=== PATIENT | male | born 1980 | race Caucasian/White ===

== ENCOUNTER 2018-06-23 17:01 | Emergency (ER) | payer MEDICAID ==
[~2018-06-23] VITALS: Ht 180.3 cm; Wt 107.9 kg
[~2018-06-23 17:01] MED LIST: CYCL-120 PO; IBUP-1051 PO; NO HOME MEDS
[2018-06-23 17:08] VITALS: BP 140/80
[2018-06-23] MEDS ORDERED: FLUT16SP2 BOTHNARES (17:21)
[2018-06-23] MEDS ORDERED: METH4TAB3 PO (17:21)
== END 2018-06-23 17:32 | disposition home or self-care (01) ==
LOC: ER 17:02
DX: J32.9 Chronic sinusitis, unspecified (principal); F17.200 Nicotine dependence, unspecified, uncomplicated; Z79.899 Other long term (current) drug therapy; Z56.0 Unemployment, unspecified
CPT/HCPCS: 99283

== ENCOUNTER 2019-02-23 06:24 | Emergency (ER) | payer MEDICAID ==
[~2019-02-23] VITALS: Ht 177.8 cm; Wt 114.0 kg
[~2019-02-23 06:24] MED LIST changes: +DIAZ5TAB PO; +FLUT16SP2 BOTHNARES; +METH4TAB3 PO
[2019-02-23] MEDS ORDERED: ERYT1OIN6 LEFTEYE (07:11)
[2019-02-23 07:29] VITALS: BP 113/68
== END 2019-02-23 07:30 | disposition home or self-care (01) ==
LOC: ER 06:24
DX: H10.9 Unspecified conjunctivitis (principal); Z56.0 Unemployment, unspecified; Z79.899 Other long term (current) drug therapy
CPT/HCPCS: 99283

== ENCOUNTER 2019-10-23 16:03 | Emergency (ER) | payer MEDICAID ==
[~2019-10-23] VITALS: Ht 180.3 cm; Wt 110.0 kg
[2019-10-23 16:23] VITALS: BP 117/74
[2019-10-23] MEDS ORDERED: AMOX500C2 PO (16:56)
== END 2019-10-23 17:30 | disposition home or self-care (01) ==
LOC: ER 16:04
DX: H66.91 Otitis media, unspecified, right ear (principal); Z56.0 Unemployment, unspecified; Z79.899 Other long term (current) drug therapy
CPT/HCPCS: 99283

== ENCOUNTER 2021-02-21 19:04 | Emergency (ER) | payer MEDICAID ==
[~2021-02-21] VITALS: Ht 180.3 cm; Wt 88.2 kg
[2021-02-21 19:09] VITALS: BP 140/78
[2021-02-21] MEDS ORDERED: LIDOcaine 1% W/epiNEPHrine 1:200,000 10ml vial IJ ONE (19:50)
[2021-02-21] MEDS ORDERED: TETanus/Pertussis (Acell)/Diphther VAC/PF (Tdap-Adult) 0.5ml syringe IMVAC ONE (19:50)
== END 2021-02-21 21:18 | disposition home or self-care (01) ==
LOC: ER 19:05
DX: S61.412A Laceration without foreign body of left hand, initial encounter (principal); Z72.89 Other problems related to lifestyle; Z56.0 Unemployment, unspecified; Z79.899 Other long term (current) drug therapy; W26.0XXA Contact with knife, initial encounter; Y93.89 Activity, other specified; Y92.89 Other specified places as the place of occurrence of the external cause; Y99.8 Other external cause status
CPT/HCPCS: 12002; 90471; 90715; 99283

== ENCOUNTER 2021-02-22 13:36 | Emergency (ER) | payer MEDICAID ==
[~2021-02-22] VITALS: Ht 180.3 cm; Wt 100.0 kg
[2021-02-22 13:52] VITALS: BP 136/86
== END 2021-02-22 16:36 | disposition left against medical advice (07) ==
LOC: ER 13:36
DX: M79.642 Pain in left hand (principal); Z53.21 Procedure and treatment not carried out due to patient leaving prior to being seen by health care provider

== ENCOUNTER 2021-06-26 09:08 | Emergency (ER) | payer MEDICAID ==
[~2021-06-26] VITALS: Ht 180.3 cm; Wt 104.5 kg
[2021-06-26 09:33] VITALS: BP 134/92
[2021-06-26 11:32] LABS: D-DIMER 0.46 MG/L FEU (0-0.50)
== END 2021-06-26 14:35 | disposition home or self-care (01) ==
LOC: ER 09:09
DX: U07.1 COVID-19 (principal); R43.8 Other disturbances of smell and taste; J02.9 Acute pharyngitis, unspecified; R06.02 Shortness of breath; R09.81 Nasal congestion; R05.9 Cough, unspecified; R07.89 Other chest pain; Z72.89 Other problems related to lifestyle; Z56.0 Unemployment, unspecified; Z79.899 Other long term (current) drug therapy
CPT/HCPCS: 36415; 85379; 87635; 99283; C9803

== ENCOUNTER 2022-08-28 10:36 | Emergency (ER) | payer MEDICAID ==
[~2022-08-28] VITALS: Ht 180.3 cm; Wt 100.0 kg
[2022-08-28 10:39] VITALS: BP 129/93
[2022-08-28] MEDS ORDERED: AMOX-580 PO (11:13)
== END 2022-08-28 11:28 | disposition home or self-care (01) ==
LOC: ER 10:37
DX: H00.034 Abscess of left upper eyelid (principal)
CPT/HCPCS: 99283

== ENCOUNTER 2022-08-28 16:59 | Emergency (ER) | payer MEDICAID ==
[~2022-08-28] VITALS: Ht 180.3 cm; Wt 100.0 kg
[~2022-08-28 16:59] MED LIST changes: +AMOX-580 PO
[2022-08-28 17:06] VITALS: BP 132/74
== END 2022-08-28 21:03 | disposition left against medical advice (07) ==
LOC: ER 17:00
DX: S61.215A Laceration without foreign body of left ring finger without damage to nail, initial encounter (principal); Z53.21 Procedure and treatment not carried out due to patient leaving prior to being seen by health care provider; X58.XXXA Exposure to other specified factors, initial encounter; Y93.9 Activity, unspecified; Y92.9 Unspecified place or not applicable; Y99.9 Unspecified external cause status

== ENCOUNTER 2022-11-19 10:59 | Emergency (ER) | payer MEDICAID ==
[~2022-11-19] VITALS: Ht 180.3 cm; Wt 100.0 kg
[~2022-11-19 10:59] MED LIST changes: -AMOX-580 PO
--- NOTE | 2022-11-19 11:23 | NUR ---
INFORMED DR. BRAND OF PT, SAW PT FROM DOORWAY WHILE PT GETTING EKG IN ROOM 19. GIVEN LAB ORDERS, NO IMAGING AT THIS TIME.
[2022-11-19 11:39] LABS: BASOPHILS # (AUTO) 0.1 X10'3 (0-0.2); BASOPHILS % (AUTO) 0.6 % (0-1); EOSINOPHILS # (AUTO) 0.1 X10'3 (0-0.9); EOSINOPHILS % (AUTO) 0.7 % (0-6); HEMATOCRIT 48.9 % (42.0-52.0); HEMOGLOBIN 16.7 g/dl (14.0-17.9); LYMPHOCYTES # (AUTO) 2.3 X10'3 (1.1-4.8); LYMPHOCYTES % (AUTO) 10.4 % (21-51); MEAN CORPUSCULAR HEMOGLOBIN 30.9 PG (27.0-31.0); MEAN CORPUSCULAR HGB CONC 34.1 g/dL (33.0-36.5); MEAN CORPUSCULAR VOLUME 90.7 FL (78-98); MEAN PLATELET VOLUME 8.9 FL (7.4-10.4); MONOCYTES # (AUTO) 0.4 X10'3 (0-0.9); MONOCYTES % (AUTO) 2.1 % (2-12); NEUTROPHILS # (AUTO) 18.9 X10'3 (1.8-7.7); NEUTROPHILS % (AUTO) 86.2 % (42-75); PLATELET COUNT 232 X10'3 (140-440); RED BLOOD COUNT 5.39 X10'6 (4.70-6.10); RED CELL DISTRIBUTION WIDTH 13.2 % (11.5-14.5); WHITE BLOOD COUNT 21.9 X10'3 (4.5-11.0)
[2022-11-19 11:39] LABS: CLARITY,URINE CLEAR (Clear); COLOR,URINE YELLOW (Yellow); GLUCOSE, URINE >=1000 mg/dl (Neg); KETONES,URINE NEGATIVE (Neg); LEUKOCYTE ESTERASE ,URINE NEGATIVE (Neg); NITRITES, URINE NEGATIVE (Neg); OCCULT BLOOD,URINE NEGATIVE (Neg); PROTEIN,URINE NEGATIVE (Neg); UROBILINOGEN,URINE 0.2 E.U/dL (0.2-1.0)
[2022-11-19 11:47] LABS: UA COLLECTION TYPE CLN CATCH MIDSTREAM
[2022-11-19 11:48] LABS: BACTERIA,URINE FEW /HPF (Neg); RBC,URINE 0-2 /HPF (0-2); SQUAMOUS EPITHELIAL CELL,UR FEW /LPF (FEW); WBC,URINE 0-4 /HPF (0-4)
[2022-11-19 12:05] LABS: ALANINE AMINOTRANSFERASE 52 U/L (12-78); ALBUMIN 4.1 G/DL (3.4-5.0); ALKALINE PHOSPHATASE 149 IU/L (46-116); ANION GAP 9 (8-16); ASPARTATE AMINO TRANSFERASE 29 U/L (10-37); BILIRUBIN,TOTAL 0.5 MG/DL (0.1-1.0); BLOOD UREA NITROGEN 18 MG/DL (7-18); BUN/CREATININE RATIO 18.2 (5.4-32.0); CALCIUM 9.2 MG/DL (8.5-10.1); CHLORIDE 104 MMOL/L (99-107); CREATININE 0.99 MG/DL (0.60-1.10); GLUCOSE 251 MG/DL (70-104); POTASSIUM 3.8 MMOL/L (3.5-5.1); SODIUM 137 MMOL/L (135-145); TOTAL CARBON DIOXIDE 23.6 MMOL/L (24-32); TOTAL PROTEIN 8.4 G/DL (6.4-8.2); eGFR 83 ML/MIN
[2022-11-19 12:07] LABS: URINE AMPHETAMINE SCREEN NEGATIVE (Neg); URINE BARBITUATE SCREEN NEGATIVE (Neg); URINE BENZODIAZEPINES SCREEN NEGATIVE (Neg); URINE CANNABINOID SCREEN NEGATIVE (Neg); URINE COCAINE SCREEN NEGATIVE (Neg); URINE METHADONE SCREEN NEGATIVE (Neg); URINE OPIATE SCREEN NEGATIVE (Neg); URINE PHENCYCLIDINE SCREEN NEGATIVE (Neg)
[2022-11-19 12:44] VITALS: BP 120/76
--- NOTE | 2022-11-19 12:45 | NUR ---
Patient mentation is WNL GCS 15. SKIN signs PWD. Patient appears in minor distress. Slightly anxious
[2022-11-19] MEDS ORDERED: normal saline 1000ML IV soln IVB ONE (14:10)
[2022-11-19] MEDS ORDERED: CefTRIAXone 2gm/D5W 50ml BAG 50 ML IV ONE ×2 (14:15→16:30)
--- NOTE | 2022-11-19 14:32 | NUR ---
Patient evaluated by provider in RAP area. Orders placed, administration of medication pending ED room assignment. Patient aware.
[2022-11-19 15:33] LABS: HEMOGLOBIN A1C 11.3 % (4.5-6.2)
[2022-11-19] MEDS ORDERED: ketorolac trometh. 30mg/ml inj. IV ONE (16:05)
[2022-11-19] MEDS ORDERED: AMOX-580 PO (17:38)
--- NOTE | 2022-11-19 18:17 | NUR ---
Patient evaluated, treated and discharged by provider prior to nurse assessment. Okay to discharge per provider.
[2022-11-19] MEDS ORDERED: METF-436 PO (18:37)
== END 2022-11-19 18:18 | disposition home or self-care (01) ==
LOC: ER 10:59
DX: J40 Bronchitis, not specified as acute or chronic (principal); M79.10 Myalgia, unspecified site; M79.652 Pain in left thigh; M79.651 Pain in right thigh; R51.9 Headache, unspecified; R20.0 Anesthesia of skin; Z56.0 Unemployment, unspecified
CPT/HCPCS: 36415; 71045; 80053; 80305; 81001; 82948; 83036; 83605; 84145; 85025; 87040; 93005; 96365; 96375; 99285; J0696; J1885; J7030

== ENCOUNTER 2023-01-16 22:35 | Emergency (ER) | payer MEDICAID ==
[~2023-01-16] VITALS: Ht 180.3 cm; Wt 109.1 kg
[~2023-01-16 22:35] MED LIST changes: +METF-436 PO
[2023-01-16 22:51] VITALS: BP 139/78
[2023-01-16] MEDS ORDERED: METF-436 PO (23:03)
[2023-01-16] MEDS ORDERED: insulin regular, human 10 units/0.1 ml syringe SQ ONE (23:05)
== END 2023-01-16 23:38 | disposition home or self-care (01) ==
LOC: ER 22:35
DX: E11.65 Type 2 diabetes mellitus with hyperglycemia (principal); Z56.0 Unemployment, unspecified
CPT/HCPCS: 82948; 96372; 99283; J1815

== ENCOUNTER 2024-07-10 15:08 | Emergency (ER) | payer MEDICAID ==
[~2024-07-10] VITALS: Ht 180.3 cm; Wt 100.0 kg
[2024-07-10 15:40] VITALS: TEMP 98.9
[2024-07-10 15:53] LABS: BASOPHILS % (AUTO) 0.5 % (0-1); EOSINOPHILS % (AUTO) 0.3 % (0-6); HEMATOCRIT 44.3 % (42.0-52.0); HEMOGLOBIN 15.2 g/dl (14.0-17.9); LYMPHOCYTES % (AUTO) 16.7 % (21-51); MEAN CORPUSCULAR HEMOGLOBIN 31.6 PG (27.0-31.0); MEAN CORPUSCULAR HGB CONC 34.3 g/dL (33.0-36.5); MEAN CORPUSCULAR VOLUME 92.2 FL (78-98); MEAN PLATELET VOLUME 8.7 FL (7.4-10.4); MONOCYTES # (AUTO) 0.5 X10'3 (0-0.9); MONOCYTES % (AUTO) 8.4 % (2-12); NEUTROPHILS # (AUTO) 4.6 X10'3 (1.8-7.7); NEUTROPHILS % (AUTO) 74.1 % (42-75); PLATELET COUNT 167 X10'3 (140-440); RED CELL DISTRIBUTION WIDTH 13.7 % (11.5-14.5); WHITE BLOOD COUNT 6.2 X10'3 (4.5-11.0)
[2024-07-10 16:09] LABS: ALANINE AMINOTRANSFERASE 68 U/L (12-78); ALBUMIN 3.3 G/DL (3.4-5.0); ALBUMIN/GLOBULIN RATIO 0.9 (1.1-1.5); ALKALINE PHOSPHATASE 102 IU/L (46-116); ANION GAP 5 (8-16); ASPARTATE AMINO TRANSFERASE 27 U/L (10-37); BILIRUBIN,TOTAL 0.5 MG/DL (0.1-1.0); BLOOD UREA NITROGEN 16 MG/DL (7-18); BUN/CREATININE RATIO 16.2 (10.0-20.0); CALCIUM 8.4 MG/DL (8.5-10.1); CHLORIDE 104 MMOL/L (99-107); CREATININE 0.99 MG/DL (0.60-1.10); GLUCOSE 156 MG/DL (70-104); POTASSIUM 3.8 MMOL/L (3.5-5.1); SODIUM 134 MMOL/L (135-145); TOTAL CARBON DIOXIDE 25.1 MMOL/L (24-32); TOTAL PROTEIN 7.1 G/DL (6.4-8.2); eCRCL 102 ML/MIN; eGFR 83 ML/MIN
[2024-07-10] MEDS: LORazepam 2 mg/ml vial IV ONE (16:46)
[2024-07-10 17:45] VITALS: BP 99/58; PULSE 79; RESP 24; O2SAT 96
== END 2024-07-10 18:05 | disposition home or self-care (01) ==
LOC: ER 15:09
DX: R55 Syncope and collapse (principal); R12 Heartburn; R42 Dizziness and giddiness; Z79.899 Other long term (current) drug therapy
CPT/HCPCS: 36415; 80053; 85025; 93005; 96374; 99284; J2060; J7030